=== PATIENT | male | born 1970 | race Caucasian/White ===

== ENCOUNTER 2017-07-16 16:47 | Emergency (ER) | payer BC ==
[~2017-07-16] VITALS: Ht 182.9 cm; Wt 90.7 kg
--- NOTE | 2017-07-16 17:05 | NUR ---
pt is in room #2b. dr metz evaluated the pt.
[2017-07-16] MEDS ORDERED: KETOROLAC TROMETHAMINE 30 MG INJ IVP ONE (18:00)
[2017-07-16] MEDS ORDERED: DEXAMETHASONE SOD PHOSPHATE 4 MG INJ IV ONE (18:00)
[2017-07-16] MEDS ORDERED: CLINDAMYCIN PHOSPHATE IV 600 MG in IV DEXTROSE 5% 100 ML IV ONE (18:00)
[2017-07-16] MEDS ORDERED: DEXAMETHASONE SOD PHOSPHATE 10 MG INJ ONE (18:23)
[2017-07-16] MEDS ORDERED: CLINDAMYCIN PHOSPHATE 600 MG/4 ML VIAL ONE (18:24)
[2017-07-16] MEDS ORDERED: KETOROLAC TROMETHAMINE 30 MG INJ ONE (18:24)
[2017-07-16 18:33] LABS: BASOPHILS % (AUTO) 0.1 % (0.0-2.0); HEMATOCRIT 42.7 % (36.7-47.1); HEMOGLOBIN 14.8 g/dL (12.5-16.3); LYMPHOCYTES # (AUTO) 0.7 K/uL (20.0-40.0); LYMPHOCYTES % (AUTO) 8.5 % (20.5-51.5); MEAN CORPUSCULAR HEMOGLOBIN 30.6 uug (23.8-33.4); MEAN CORPUSCULAR HGB CONC 35 g/dL (32.5-36.3); MEAN CORPUSCULAR VOLUME 88.3 fL (73.0-96.2); MONOCYTES # (AUTO) 1.1 K/uL (2.0-10.0); NEUTROPHILS # (AUTO) 6.2 K/uL (1.8-8.9); NEUTROPHILS % (AUTO) 77.4 % (38.5-71.5); PLATELET COUNT (AUTO) 153 K/uL (152-348); RED BLOOD CELL COUNT(AUTO) 4.84 MIL/uL (4.06-5.63); WHITE BLOOD COUNT (AUTO) 8.1 K/uL (3.6-10.2)
[2017-07-16 18:39] LABS: CREATININE 1.2 mg/dL (0.6-1.3); POTASSIUM 3.9 mmol/L (3.5-5.1)
[2017-07-16 18:45] LABS: BILIRUBIN,DIRECT 0.1 mg/dL (0.0-0.2); BILIRUBIN,TOTAL 0.4 mg/dL (0.2-1.0); TOTAL PROTEIN, SERUM 6.7 g/dL (6.4-8.2)
[2017-07-16] MEDS ORDERED: AMOX500C2 PO (18:56)
[2017-07-16] MEDS ORDERED: METH4TAB PO (18:56)
[2017-07-16] MEDS ORDERED: LEXAPRO (18:56)
[2017-07-16 19:14] LABS: *BILIRUBIN,URIN NEGATIVE (NEGATIVE); *BLOOD, URINE NEGATIVE (NEGATIVE); *CLARITY,URINE CLEAR (CLEAR); *COLOR,URINE DARK YELLOW (YELLOW); *KETONES,URINE 1+ (NEGATIVE); *PROTEIN,URINE 2+ (NEGATIVE); LEUKOCYTE ESTERASE ,URINE NEGATIVE (NEGATIVE); NITRITE, URINE NEGATIVE (NEGATIVE); UGLUCOSE NEGATIVE (NEGATIVE)
[2017-07-16 19:16] LABS: MUCUS,URINE MANY /LPF (0-FEW); SQUAMOUS EPITHELIAL CELL,UR FEW /HPF (NONE SEEN)
--- NOTE | 2017-07-16 19:24 | NUR ---
PT TAKEN TO CT VIA WHEELCHAIR. VSS. NO ACUTE SIGNS OF DISTRESS NOTED.
[2017-07-16] MEDS ORDERED: NORMAL SALINE FLUSH 10 ML DISP.SYRIN ONE (19:26)
[2017-07-16] MEDS ORDERED: IV NORMAL SALINE 250 ML IV ONE (19:26)
[2017-07-16] MEDS ORDERED: IOHEXOL 300MG/ML 100 ML INFUS..BTL ONE (19:26)
--- NOTE | 2017-07-16 19:35 | NUR ---
REPORT TAKEN FROM MIKIE CORMIER. ASSUMING PATIENT CARE AT THIS TIME.
--- NOTE | 2017-07-16 19:38 | NUR ---
PT BACK IN ROOM FROM CT.
--- NOTE | 2017-07-16 21:27 | NUR ---
Patient discharged to home in stable conditon. IV removed w/ catheter intact. no bleeding noted. VSS. Written and verbal after care instructions given. Patient verbalizes understanding of instructions. Ambulated w/ steady gait.
[2017-07-16 21:46] VITALS: BP 130/82
== END 2017-07-16 21:46 | disposition home or self-care (01) ==
LOC: ER 16:48
DX: J35.1 Hypertrophy of tonsils (principal)
CPT/HCPCS: 36415; 70030-TC; 70491; 71045; 83605; 85025; 85730; 87040; 87086; 93005; A4663; J1100; J1885; J3490; J7030; J7050; Q9967